=== PATIENT | female | born 1970 | race Caucasian/White ===

== ENCOUNTER 2017-10-06 02:59 | Observation (INO) | payer OTHER, MEDICAID ==
[~2017-10-06] VITALS: Ht 162.6 cm; Wt 106.5 kg
[~2017-10-06 02:59] MED LIST: AFRI0.055; HYDR-2768 PO; MEDR4PAK3 PO; METO50TA PO; OMEP20TA39 PO; POTA-243 PO
[2017-10-06 03:00] VITALS: BP 200/91; PULSE 112; RESP 20; TEMP 98.6; O2SAT 90
[2017-10-06] MEDS ORDERED: OMEP20TA93 PO ×2 (03:25→14:02)
[2017-10-06] MEDS ORDERED: METO50TA PO (03:25)
[2017-10-06] MEDS ORDERED: SODIUM CHLORIDE 0.9% FLUSH 10 ML FLUSH IVF PRN (03:45)
--- NOTE | 2017-10-06 03:58 | PD ---
HPI Chief Complaint: Respiratory Symptoms Time Seen by Provider: 03:45 Travel History International Travel<30 days: No Contact w/Intl Traveler<30days: No Traveled to known affect area: No History of Present Illness HPI 47-year-old female patient with history of hypertension, previous history of leg edema currently on diuretics as needed, presents to the ER today because she has been having worsening leg edema, shortness of breath in the past day, dyspnea on exertion. She denies any chest pains or any other issues. Modifying Factors: None Associated Signs & Symptoms: Leg edema, shortness of breath, dyspnea on exertion Risk Factors: None PFSH Past Medical History Hx Anticoagulant Therapy: No Blood Disorders: No Cancer: Yes (CERVICAL) Cardiac Catheterization: No Cardiovascular Problems: Yes (HTN) Chemotherapy: No Cerebrovascular Accident: No Diabetes: No Diminished Hearing: No Endocrine: No Gastrointestinal Disorders: No GERD: Yes Glaucoma: No Genitourinary: No Hepatitis: No Hiatal Hernia: No Hypertension: Yes Immune Disorder: No Implanted Vascular Access Dvce: No Medical other: No Musculoskeletal: No Neurologic: No Psychiatric: No Reproductive: Yes (CERVICAL CANCER) Respiratory: No Immunizations Current: Yes Thyroid Disease: No Tetanus Vaccination: Unknown Influenza Vaccination: No ?: Not Menopausal: Yes : 3 Para: 1 : 2 Past Surgical History Abdominal Surgery: No Cardiac Surgery: No Section: Yes (X1 ) Ear Surgery: No Endocrine Surgery: No Eye Surgery: No Genitourinary Surgery: No Gynecologic Surgery: Yes (CONE BIOPSY) Hysterectomy: Yes Neurologic Surgery: No Oral Surgery: No Pacemaker: No Thoracic Surgery: No Other Surgery: Yes Social History Alcohol Use: No Tobacco Use: No Substance Use: No Allergies-Medications (Allergen,Severity, Reaction): Coded Allergies: methylprednisolone (Unverified Allergy, Intermediate, Tachycardia, 10/06/17 ) diatrizoate meglumine (Unverified Allergy, Mild, Hives, 10/06/17) gadobenic acid (Unverified Allergy, Mild, Hives, 10/06/17) gadodiamide (Unverified Allergy, Mild, Hives, 10/06/17) gadoteridol (Unverified Allergy, Mild, Hives, 10/06/17) iodixanol (Unverified Allergy, Mild, Hives, 10/06/17) iohexol (Unverified Allergy, Mild, Hives, 10/06/17) Reported Meds & Prescriptions Reported Meds & Active Scripts Active Reported Omeprazole 20 Mg Tab 20 Mg PO DAILY Metoprolol Tartrate 50 Mg Tab 50 Mg PO DAILY Review of Systems Except as stated in HPI: all other systems reviewed are Neg Physical Exam Narrative GENERAL: Well-developed middle age female patient currently in mild distress. Awake and oriented 3. SKIN: Focused skin assessment warm/dry. HEAD: Atraumatic. Normocephalic. EYES: Pupils equal and round. No scleral icterus. No injection or drainage. ENT: No nasal bleeding or discharge. Mucous membranes pink and moist. NECK: Trachea midline. No JVD. CARDIOVASCULAR: Regular rate and rhythm. No murmur appreciated. RESPIRATORY: Mild accessory muscle use. Bibasilar crackles. Breath sounds equal bilaterally. GASTROINTESTINAL: Abdomen soft, non-tender, nondistended. Hepatic and splenic margins not palpable. MUSCULOSKELETAL: No obvious deformities. No clubbing. No cyanosis. Bilateral pitting edema of both legs. NEUROLOGICAL: Awake and alert. No obvious cranial nerve deficits. Motor grossly within normal limits. Normal speech. PSYCHIATRIC: Appropriate mood and affect; insight and judgment normal. Data Data Last Documented VS Vital Signs Date Time Temp Pulse Resp B/P (MAP) Pulse Ox O2 Delivery O2 Flow Rate FiO2 10/06/17 03:52 97 Nasal Cannula 2.00 10/06/17 03:00 98.6 112 20 200/91 (127) Orders Orders Complete Blood Count With Diff (10/06/17 03:45) Comprehensive Metabolic Panel (10/06/17 03:45) B-Type Natriuretic Peptide (10/06/17 03:45) Ckmb (Isoenzyme) Profile (10/06/17 03:45) Troponin I (10/06/17 03:45) Iv Access Insert/Monitor (10/06/17 03:45) Ecg Monitoring (10/06/17 03:45) Oximetry (10/06/17 03:45) Oxygen Administration (10/06/17 03:45) Chest, Single Ap (10/06/17 03:45) Sodium Chloride 0.9% Flush (Ns Flush) (10/06/17 03:45) CKMB (10/06/17 03:50) CKMB% (10/06/17 03:50) Aspirin (Aspirin) (10/06/17 05:00) Nitroglycerin 2% Oint (Nitroglycerin 2% (10/06/17 05:00) D-Dimer (10/06/17 04:56) Albuterol-Ipratropium Neb (Duoneb Neb) (10/06/17 05:00) Troponin I (10/06/17 05:06) Admit Order (Ed Use Only) (10/06/17 05:07) Campus Administrative Assistant / Telemetry SHANA.Q8H (10/06/17 05:07) Vital Signs (Adult) Q4H (10/06/17 05:07) Diet Heart Healthy (10/06/17 Breakfast) Activity Bed Rest (10/06/17 05:07) Labs Laboratory Tests Test 10/06/17 03:50 White Blood Count 7.5 TH/MM3 Red Blood Count 4.67 MIL/MM3 Hemoglobin 13.5 GM/DL Hematocrit 39.1 % Mean Corpuscular Volume 83.9 FL Mean Corpuscular Hemoglobin 28.9 PG Mean Corpuscular Hemoglobin Concent 34.4 % Red Cell Distribution Width 13.5 % Platelet Count 182 TH/MM3 Mean Platelet Volume 8.4 FL Neutrophils (%) (Auto) 56.3 % Lymphocytes (%) (Auto) 32.1 % Monocytes (%) (Auto) 9.2 % Eosinophils (%) (Auto) 1.4 % Basophils (%) (Auto) 1.0 % Neutrophils # (Auto) 4.2 TH/MM3 Lymphocytes # (Auto) 2.4 TH/MM3 Monocytes # (Auto) 0.7 TH/MM3 Eosinophils # (Auto) 0.1 TH/MM3 Basophils # (Auto) 0.1 TH/MM3 CBC Comment DIFF FINAL Differential Comment Blood Urea Nitrogen 10 MG/DL Creatinine 0.79 MG/DL Random Glucose 103 MG/DL Total Protein 7.1 GM/DL Albumin 3.1 GM/DL Calcium Level 8.2 MG/DL Alkaline Phosphatase 72 U/L Aspartate Amino Transf (AST/SGOT) 48 U/L Alanine Aminotransferase (ALT/SGPT) 95 U/L Total Bilirubin 0.3 MG/DL Sodium Level 142 MEQ/L Potassium Level 3.7 MEQ/L Chloride Level 110 MEQ/L Carbon Dioxide Level 25.9 MEQ/L Anion Gap 6 MEQ/L Estimat Glomerular Filtration Rate 77 ML/MIN Total Creatine Kinase 184 U/L Creatine Kinase MB 1.8 NG/ML Troponin I 0.10 NG/ML B-Type Natriuretic Peptide 130 PG/ML MDM Medical Decision Making Medical Screen Exam Complete: Yes Emergency Medical Condition: Yes Medical Record Reviewed: Yes Interpretation(s) EKG shows normal sinus rhythm at a rate of 79 bpm with LVH. No signs of acute ST elevation or depressions. Laboratory Tests Test 10/06/17 03:50 Monocytes (%) (Auto) 9.2 % (0.0-8.0) Albumin 3.1 GM/DL (3.4-5.0) Calcium Level 8.2 MG/DL (8.5-10.1) Aspartate Amino Transf (AST/SGOT) 48 U/L (15-37) Alanine Aminotransferase (ALT/SGPT) 95 U/L (10-53) Chloride Level 110 MEQ/L (98-107) Estimat Glomerular Filtration Rate 77 ML/MIN (>89) Troponin I 0.10 NG/ML (0.02-0.05) B-Type Natriuretic Peptide 130 PG/ML (0-100) Differential Diagnosis Shortness of breath: CHF exacerbation versus pneumonia versus bronchitis Narrative Course Chest x-ray did not show any signs of acute pulmonary processes. Her BNP is not significantly elevated. Her initial blood pressure was fairly elevated but came down on its own in the ER. Her troponin returns elevated for unknown reason. I suspect that it could be related to the blood pressure. She was given aspirin and nitroglycerin in the ER. At this point, my plan would be to admit the patient for further evaluation and treatment. Case was discussed with Dr. Le who will like me to repeat troponin and states that she would qualify for observation admission at this point. In addition, a nebulizer treatment was given for the patient. She is admitted to Dr. Parks service as per previous discussion with admitting physician. In addition, d-dimer was also ordered and the patient for further evaluation of this sudden shortness of breath. Diagnosis Primary Impression: Elevated troponin Additional Impression: Shortness of breath Admitting Information Admitting Physician Requests: Admit Geoffrey Crawley MD Oct 06, 2017 03:58
[2017-10-06 04:06] LABS: AUTOMATED NEUTROPHIL # 4.2 TH/MM3 (1.8-7.7); BASOPHIL # 0.1 TH/MM3 (0-0.2); EOSINOPHIL # 0.1 TH/MM3 (0-0.4); EOSINOPHIL % 1.4 % (0.0-4.0); HEMATOCRIT 39.1 % (35.0-46.0); HEMOGLOBIN 13.5 GM/DL (11.6-15.3); LYMPH % 32.1 % (9.0-44.0); LYMPHOCYTE # 2.4 TH/MM3 (1.0-4.8); MEAN CELL VOLUME 83.9 FL (80.0-100.0); MEAN CORPUSCULAR HEMOGLOBIN 28.9 PG (27.0-34.0); MEAN CORPUSCULAR HGB CONC 34.4 % (32.0-36.0); MEAN PLATELET VOLUME 8.4 FL (7.0-11.0); MONO % 9.2 % (0.0-8.0); MONOCYTE # 0.7 TH/MM3 (0-0.9); NEUT % 56.3 % (16.0-70.0); PLATELET COUNT 182 TH/MM3 (150-450); RED BLOOD COUNT 4.67 MIL/MM3 (4.00-5.30); RED CELL DISTRIBUTION WIDTH 13.5 % (11.6-17.2); WHITE BLOOD COUNT 7.5 TH/MM3 (4.0-11.0)
--- NOTE | 2017-10-06 04:15 | RADRPT ---
EXAM DATE/TIME: 10/06/2017 03:57 [facility] COMPARISON: CHEST SINGLE AP, July 07, 2015, 20:02. INDICATIONS : Chest pain and weakness MEDICAL HISTORY : None. SURGICAL HISTORY : None. ENCOUNTER: Initial ACUITY: 1 day PAIN SCORE: 7/10 LOCATION: Bilateral chest FINDINGS: A single view of the chest demonstrates the lungs to be symmetrically aerated without evidence of mas s, infiltrate or effusion. The cardiomediastinal contours are unremarkable. Osseous structures are intact. CONCLUSION: No acute disease. Dmitriy Manuel MD on October 06, 2017 at 4:12 Board Certified Radiologist. This report was verified electronically.
[2017-10-06 04:33] LABS: ALBUMIN 3.1 GM/DL (3.4-5.0); ALT (GPT) 95 U/L (10-53); AST (GOT) 48 U/L (15-37); BICARBONATE 25.9 MEQ/L (21.0-32.0); BLOOD UREA NITROGEN 10 MG/DL (7-18); CALCIUM 8.2 MG/DL (8.5-10.1); CHLORIDE 110 MEQ/L (98-107); CREATININE 0.79 MG/DL (0.50-1.00); GLOMERULAR FILTRATION RATE 77 ML/MIN (>89); GLUCOSE,RANDOM 103 MG/DL (74-106); SODIUM (NA) 142 MEQ/L (136-145)
[2017-10-06 04:37] LABS: ALKALINE PHOSPHATASE 72 U/L (45-117); TOTAL BILIRUBIN ADULT 0.3 MG/DL (0.2-1.0); TOTAL PROTEIN 7.1 GM/DL (6.4-8.2)
[2017-10-06] MEDS ORDERED: ASPIRIN 325 MG TAB PO ONE (05:00)
[2017-10-06] MEDS ORDERED: RESP: ALBUTEROL 2.5 MG/IPRATROPIUM 0.5 MG NEB (SCH) INH ONE (05:00)
[2017-10-06] MEDS ORDERED: NITROGLYCERIN 2% OINT 1 GM PACKET TOPICAL ONE (05:00)
[2017-10-06 05:04] VITALS: O2SAT 98
[2017-10-06 07:02] VITALS: BP 168/74; PULSE 73; RESP 16; O2SAT 95
[2017-10-06 08:00] VITALS: PULSE 72
[2017-10-06] MEDS ORDERED: ONDANSETRON HCL 4 MG/2 ML VIAL IV PRN (08:00)
[2017-10-06] MEDS ORDERED: ACETAMINOPHEN 325 MG TAB PO PRN (08:00)
--- NOTE | 2017-10-06 08:03 | HHI.HP ---
HPI Service [facility] Hospitalists Primary Care Physician Dr. Nay Patterson Admission Diagnosis elevated troponin/hypertensive urgency/shortness of breath Chief Complaint: SOB Travel History International Travel<30 Days: No Contact w/Intl Traveler <30 Da: No Traveled to Known Affected Are: No History of Present Illness Mrs. Leong is a pleasant 47 y/o WF with HTN, hyperlipidemia, pre-diabetes, and hx of cervical cancer. She presented to the ED on 10/06/17 with complaints of SOB. She states that she was in her normal state of health recently and felt well when she went to bed last night around 1AM. Then around 2:30AM she woke suddenly feeling SOB and felt like she had some liquid in her throat and then crackles/gurgling noises whenever she tried to take a breath. This prompted her to come to the ED for further evaluation. IN the ED the pts BP was significantly elevated at 200/91. Pts labs in the ED noted a Troponin I of 0.10 , BNP 130, slightly elevated LFTs with AST48, ALT 95 and an elevated D-Dimer of 0.67. Pt was given a duoneb treatment which she reports relieved her SOB. She denies any chest pain, palpitations, dizziness, weakness, diaphoresis, nausea/ vomiting. She has reported some LE edema which she relates to being on her feet most of the day. She used to take HCTZ daily but has not taken this daily since 2016. She only uses this as needed for swelling. In the last few days she has noted the pedal edema. CXR in the ED noted no acute disease. Pt denies any hx of asthma, COPD, or cardiac disease. Review of Systems Constitutional: DENIES: Fever, Chills Eyes: DENIES: Vision loss Ears, nose, mouth, throat: DENIES: Hearing loss Respiratory: COMPLAINS OF: Cough, Wheezing, Shortness of breath Cardiovascular: COMPLAINS OF: Lower Extremity Edema, DENIES: Chest pain, Palpitations, Dyspnea on Exertion Gastrointestinal: DENIES: Abdominal pain, Constipation, Diarrhea, Nausea, Vomiting Genitourinary: DENIES: Hematuria, Dysuria Musculoskeletal: DENIES: Back pain, Neck pain Integumentary: DENIES: Rash Neurologic: DENIES: Headache Psychiatric: DENIES: Confusion Past Family Social History Past Medical History HTN Hyperlipidemia Systolic heart murmur GERD Fatty liver Pre-diabetes Vitamin D Deficiency Hx of cervical cancer 2D echo (08/08/15): - Moderate concetric LVH - Estimated EF 60-65% - Mild mitral valve regurg - Mild thickening of the aortic valve leaflets Past Surgical History Total abdominal hysterectomy and cervix Cesarian section Reported Medications Omeprazole 20 Mg Tab 20 Mg PO DAILY Metoprolol Tartrate 50 Mg Tab 50 Mg PO DAILY Allergies: Coded Allergies: methylprednisolone (Unverified Allergy, Intermediate, Tachycardia, 10/06/17 ) diatrizoate meglumine (Unverified Allergy, Mild, Hives, 10/06/17) gadobenic acid (Unverified Allergy, Mild, Hives, 10/06/17) gadodiamide (Unverified Allergy, Mild, Hives, 10/06/17) gadoteridol (Unverified Allergy, Mild, Hives, 10/06/17) iodixanol (Unverified Allergy, Mild, Hives, 10/06/17) iohexol (Unverified Allergy, Mild, Hives, 10/06/17) Family History Mother with hx of liver failure and liver transplant Father with hx of prostate cancer Social History Denies any alcohol, tobacco or illicit drug use 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 HEENT: Atraumatic. Normocephalic. No temporal or scalp tenderness. No scleral icterus. Airway patent. NECK: Trachea midline, supple, nontender. CARDIO: Regular. RESP: CTA bilaterally. No wheezes, rales, or rhonchi. ABD: +BS, soft, non-tender, nondistended. EXT: Bilateral LE pedal edema. NEURO: Awake and alert. Motor and sensory grossly within normal limits. Normal speech. Laboratory Laboratory Tests Test 10/06/17 03:50 10/06/17 05:16 10/06/17 07:00 White Blood Count 7.5 Red Blood Count 4.67 Hemoglobin 13.5 Hematocrit 39.1 Mean Corpuscular Volume 83.9 Mean Corpuscular Hemoglobin 28.9 Mean Corpuscular Hemoglobin Concent 34.4 Red Cell Distribution Width 13.5 Platelet Count 182 Mean Platelet Volume 8.4 Neutrophils (%) (Auto) 56.3 Lymphocytes (%) (Auto) 32.1 Monocytes (%) (Auto) 9.2 Eosinophils (%) (Auto) 1.4 Basophils (%) (Auto) 1.0 Neutrophils # (Auto) 4.2 Lymphocytes # (Auto) 2.4 Monocytes # (Auto) 0.7 Eosinophils # (Auto) 0.1 Basophils # (Auto) 0.1 CBC Comment DIFF FINAL Differential Comment Blood Urea Nitrogen 10 Creatinine 0.79 Random Glucose 103 Total Protein 7.1 Albumin 3.1 Calcium Level 8.2 Alkaline Phosphatase 72 Aspartate Amino Transf (AST/SGOT) 48 Alanine Aminotransferase (ALT/SGPT) 95 Total Bilirubin 0.3 Sodium Level 142 Potassium Level 3.7 Chloride Level 110 Carbon Dioxide Level 25.9 Anion Gap 6 Estimat Glomerular Filtration Rate 77 Total Creatine Kinase 184 Creatine Kinase MB 1.8 Troponin I 0.10 B-Type Natriuretic Peptide 130 D-Dimer Quantitative (PE/DVT) 0.67 Result Diagram: 10/06/17 0350 10/06/17 0350 Imaging Last Impressions Chest X-Ray 10/06/17 0345 Signed Impressions: Service Date/Time: Friday, October 06, 2017 03:57 - CONCLUSION: No acute disease. MD Rick Jonesi VTE Risk Assessment Caprini VTE Risk Assessment: Mod/High Risk (score >= 2) Caprini Risk Assessment Model Point Value = 1 Point Value = 2 Point Value = 3 Point Value = 5 Age 41-60 Minor surgery BMI > 25 kg/m2 Swollen legs Varicose veins or History of unexplained or recurrent spontaneous Oral contraceptives or hormone replacement Sepsis (< 1 month) Serious lung disease, including pneumonia (< 1 month) Abnormal pulmonary function Acute myocardial infarction Congestive heart failure (< 1 month) History of inflammatory bowel disease Medical patient at bed rest Age 61-74 Arthroscopic surgery Major open surgery (> 45 min) Laparoscopic surgery (> 45 min) Malignancy Confined to bed (> 72 hours) Immobilizing plaster cast Central venous access Age >= 75 History of VTE Family history of VTE Factor V Leiden Prothrombin [id number] Lupus anticoagulant Anticardiolipin antibodies Elevated serum homocysteine Heparin-induced thrombocytopenia Other congenital or acquired thrombophilia Stroke (< 1 month) Elective arthroplasty Hip, pelvis, or leg fracture Acute spinal cord injury (< 1 month) Prophylaxis Regimen Total Risk Factor Score Risk Level Prophylaxis Regimen 0-1 Low Early ambulation 2 Moderate Order ONE of the following: *Sequential Compression Device (SCD) *Heparin 5000 units SQ BID 3-4 Higher Order ONE of the following medications: *Heparin 5000 units SQ TID *Enoxaparin/Lovenox 40 mg SQ daily (WT < 150 kg, CrCl > 30 mL/min) *Enoxaparin/Lovenox 30 mg SQ daily (WT < 150 kg, CrCl > 10-29 mL/min) *Enoxaparin/Lovenox 30 mg SQ BID (WT < 150 kg, CrCl > 30 mL/min) AND/OR *Sequential Compression Device (SCD) 5 or more Highest Order ONE of the following medications: *Heparin 5000 units SQ TID (Preferred with Epidurals) *Enoxaparin/Lovenox 40 mg SQ daily (WT < 150 kg, CrCl > 30 mL/min) *Enoxaparin/Lovenox 30 mg SQ daily (WT < 150 kg, CrCl > 10-29 mL/min) *Enoxaparin/Lovenox 30 mg SQ BID (WT < 150 kg, CrCl > 30 mL/min) AND *Sequential Compression Device (SCD) Assessment and Plan Problem List: (1) Shortness of breath ICD Codes: R06.02 - Shortness of breath Status: Acute Plan: - Pt is a 47 y/o WF with HTN, hyperlipidemia, pre-diabetes, and hx of cervical cancer. - She presented to the ED on 10/06/17 with complaints of SOB. She states that she was in her normal state of health recently and felt well when she went to bed last night around 1AM. Then around 2:30AM she woke suddenly feeling SOB and felt like she had crackles/gurgling noises whenever she tried to take a breath. This prompted her to come to the ED for further evaluation. - In the ED the pts BP was significantly elevated at 200/91. Pts labs in the ED noted a Troponin I of 0.10, BNP 130, slightly elevated LFTs with AST48, ALT 95 and an elevated D-Dimer of 0.67. - Pt was given a duoneb treatment which she reports relieved her SOB and she is on RA with stable O2 sats. - She has reported some LE edema which she relates to being on her feet most of the day. She used to take HCTZ daily but has not taken this daily since 2016. - CXR in the ED noted no acute disease. - Etiology for the SOB is unclear, with relief after the Duoneb would appear to be more pulmonary in nature but pt has not had any other respiratory symptoms. Pt could have had some aspiration as well as she noted some liquid in her throat when she woke up. She also had Nitro applied in the ED and given her recent edema we will need to r/o cardiac etiology. - VQ scan was ordered in the ED - Trend troponin I - Repeat EKG - Pt had a previous Lexiscan in 2014 which was negative. - Check 2D echo - Duoneb PRN - Supportive care ADDENDUM: - Re-evaluated the pt in the afternoon and VQ scan was negative - Her troponin trended flat - Discussed with the pt that we didn't have an exact cause for her symptoms but that we were suspecting possible some aspiration causing her SOB but that she would benefit from continued stay and evaluation with 2D echo. She declined any further stay at the hospital and asked for discharge today - Pt is to followup with her PCP, Dr. Nay Patterson, in 1 week - Pt had been taking HCTZ daily up until and then stopped this. We asked that she readdress this with her PCP as she may need to resume daily dosing. - Pt may need 2D echo as an outpt - Pt is to increase her Omeprazole to 20mg BID and discussed not eating or drinking at least 2 hours prior to going to bed - Pt may need outpt followup with GI if her symptoms do not improve. (2) Elevated troponin ICD Codes: R74.8 - Abnormal levels of other serum enzymes Status: Acute Plan: - See above (3) HTN (hypertension) ICD Codes: I10 - Essential (primary) hypertension Status: Acute Plan: - Home meds resumed - BP improved in the ED without medication intervention, likely elevation was caused by her respiratory distress - Monitor (4) Hyperlipidemia ICD Codes: E78.5 - Hyperlipidemia Status: Acute Plan: - Diet controlled per the pt (5) GERD (gastroesophageal reflux disease) ICD Codes: K21.9 - Gastro-esophageal reflux disease without esophagitis Plan: - PPI - Pt denies any regurgitation at night Assessment and Plan Patient examined. Assessment and plan formulated with Mary Kate Odell PA-C. I agree with the above. episode of acute sob/cough after awakening last night pt says she awoke with sensation of fluid coming into mouth perhaps regurgitation of gastric contents . She had cough and upper airway congestion. she was very anxious and 1 neb rx at ED resolved the sx's and she has been fine all night and today. No obvious pna or chf on imaging. troponin flat and no cp. pt has acid reflux problems. her ppi doubled. she was offered to stay for further cardiac evaluation but kindly refused. 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 Problem Qualifiers (1) GERD (gastroesophageal reflux disease): Qualified Codes: K21.9 - Gastro-esophageal reflux disease without esophagitis Mary Kate Odell Oct 06, 2017 08:03 Mason Parks MD Oct 06, 2017 16:02
[2017-10-06] MEDS ORDERED: PANTOPRAZOLE SOD 20 MG DELAYED RELEASE TAB PO SCH (09:00)
[2017-10-06] MEDS ORDERED: METOPROLOL TARTRATE 50 MG TAB PO SCH (09:00)
[2017-10-06 09:03] VITALS: BP 140/70; PULSE 72; RESP 18; TEMP 98.2; O2SAT 95
[2017-10-06] MEDS ORDERED: RESP: ALBUTEROL 2.5 MG/IPRATROPIUM 0.5 MG NEB (PRN) NEB (09:45)
--- NOTE | 2017-10-06 11:51 | RADRPT ---
EXAM DATE/TIME: 10/06/2017 10:37 [facility] COMPARISON: No previous studies available for comparison. INDICATIONS : Dyspnea. DOSE: 8.5 mCi Tc99m MAA IV 0.71 mCi Tc99m DTPA aerosol MEDICAL HISTORY : Hypertension. Gastroesophageal reflux disease. Cervical cancer. SURGICAL HISTORY : Hysterectomy. ENCOUNTER: Initial ACUITY: 1 day PAIN SCALE: 0/10 LOCATION: chest TECHNIQUE: Following five minutes of tidal breathing of DTPA aerosol, planar images of the lungs were performed in eight projections. The patient was then injected with MAA, and eight-view perfusion scan was perf ormed. FINDINGS: There is a homogeneous pattern of aerosol delivery to the periphery of both lungs. No focal ventilat ory defects are seen. The perfusion lung scan demonstrates a homogenous pattern of uptake in both lungs. No segmental or s ubsegmental defects are seen. CONCLUSION: Normal examination. No perfusion or ventilatory defects are identified. Kizzy Holder MD on October 06, 2017 at 11:48 Board Certified Radiologist. This report was verified electronically.
[2017-10-06 12:20] VITALS: BP 142/60; PULSE 68; RESP 20; TEMP 98.2; O2SAT 96
--- NOTE | 2017-10-06 12:21 | EKG ---
Date Performed: 10/06/2017 Time Performed: 03:32:34 PTAGE: 47 years EKG: Sinus rhythm LEFT VENTRICULAR HYPERTROPHY AND ST-T CHANGE ABNORMAL ECG PREVIOUS TRACING : 07/08/2015 01.35 Since the prior tracing, there has been no significant sloan DOCTOR: Hermes Johns Interpretating Date/Time 10/06/2017 12:19:31
--- NOTE | 2017-10-06 14:03 | HHI.DCPOC ---
Discharge Care Plan Diagnosis: (1) GERD (gastroesophageal reflux disease) (2) Shortness of breath (3) HTN (hypertension) (4) Hyperlipidemia (5) Elevated troponin (6) Obesity (BMI 30-39.9) Goals to Promote Your Health * To prevent worsening of your condition and complications * To maintain your health at the optimal level Directions to Meet Your Goals Take your medications as prescribed Follow your dietary instruction Follow activity as directed Keep your appointments as scheduled Take your immunizations and boosters as scheduled If your symptoms worsen call your PCP, if no PCP go to Urgent Care Center or Emergency Room Smoking is Dangerous to Your Health. Avoid second hand smoke Call the 24-hour hour crisis hotline for domestic abuse at Mary Kate Odell Oct 06, 2017 14:03
--- NOTE | 2017-10-07 17:38 | EKG ---
Date Performed: 10/06/2017 Time Performed: 12:12:15 PTAGE: 47 years EKG: Sinus rhythm LEFT VENTRICULAR HYPERTROPHY AND ST-T CHANGE Consider POSSIBLE INFERIOR MYOCARDIAL INFARCTION-Age un determinate. ABNORMAL ECG PREVIOUS TRACING : 10/06/2017 03.32 DOCTOR: Sebastian Eden Interpretating Date/Time 10/07/2017 17:37:39
== END 2017-10-06 17:53 | disposition home or self-care (01) ==
LOC: NEPC 02:59 → NEDA 05:09 → NEPGCP 07:51
PROVIDERS: ADMIT Hospitalist; ATTEND Hospitalist
DX: K21.9 Gastro-esophageal reflux disease without esophagitis (principal); R06.02 Shortness of breath; I10 Essential (primary) hypertension; R74.8 Abnormal levels of other serum enzymes; R60.0 Localized edema; I16.0 Hypertensive urgency; E78.5 Hyperlipidemia, unspecified; R01.1 Cardiac murmur, unspecified; K76.0 Fatty (change of) liver, not elsewhere classified; R73.03 Prediabetes; E55.9 Vitamin D deficiency, unspecified; Z85.41 Personal history of malignant neoplasm of cervix uteri; R94.31 Abnormal electrocardiogram [ECG] [EKG]; E66.9 Obesity, unspecified; Z68.39 Body mass index [BMI] 39.0-39.9, adult; Z90.710 Acquired absence of both cervix and uterus
CPT/HCPCS: 71045; 78582; 80053; 82550; 82552; 83880; 84484; 85025; 85379; 93005; 94664; 99285; A9540; A9567; G0378